=== PATIENT | female | born 1995 | race Two or more races ===

== ENCOUNTER 2024-10-21 10:46 | Emergency (ER) | payer MEDICAID, OTHER ==
[~2024-10-21] VITALS: Ht 170.2 cm; Wt 114.0 kg
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
[2024-10-21] MEDS: ACETAMINOPHEN 325 MG TAB PO ONE (13:37)
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
[2024-10-21] MEDS ORDERED: ACET500T58 PO (14:22)
[2024-10-21] MEDS ORDERED: IBUP-1454 PO (14:22)
[2024-10-21 14:39] VITALS: BP 122/83; PULSE 60; RESP 16; TEMP 98.9; O2SAT 100
== END 2024-10-21 14:56 | disposition home or self-care (01) ==
LOC: ER 10:46
DX: R51.9 Headache, unspecified (principal); V89.2XXA Person injured in unspecified motor-vehicle accident, traffic, initial encounter; M79.632 Pain in left forearm; M54.50 Low back pain, unspecified; R07.9 Chest pain, unspecified; R10.84 Generalized abdominal pain; Y92.410 Unspecified street and highway as the place of occurrence of the external cause; Y93.89 Activity, other specified; Y99.8 Other external cause status
CPT/HCPCS: 70450; 71250; 73090; 74176